=== PATIENT | male | born 1980 | race Caucasian/White ===

== ENCOUNTER 2021-09-30 14:49 | Inpatient (IN) | payer MEDICAID, OTHER ==
[~2021-09-30] VITALS: Ht 185.4 cm; Wt 83.9 kg
[2021-09-30] MEDS: ALBUTEROL SULF 2.5 MG/0.5ML(0.5%) NEB SOLN NEB SCH ×5 (10:20→22:28)
[~2021-09-30 14:49] MED LIST: DIAZ10TA; METH-532; NOR7.5T; NORTRIPTYLINE
[2021-09-30] MEDS ORDERED: ALBUTEROL SULF 2.5 MG/0.5ML(0.5%) NEB SOLN ONE (15:08)
[2021-09-30] MEDS ORDERED: IPRATROPIUM BROM 0.5 MG/2.5ML INH SOL ONE (15:08)
[2021-09-30] MEDS ORDERED: ALBUTEROL SULF 2.5 MG/0.5ML(0.5%) NEB SOLN NEB ONE (15:15)
[2021-09-30] MEDS ORDERED: IPRATROPIUM BROM 0.5 MG/2.5ML INH SOL NEB ONE (15:15)
[2021-09-30] MEDS ORDERED: methylPREDNISolone SOD SUCC 125 MG/2 ML VL IV ONE (15:15)
[2021-09-30 15:48] LABS: Basophils # (auto) 0 10 ^3/uL (0-0.2); Basophils % (auto) 0.1 % (0.0-2.0); Eosinophils # (auto) 0 10 ^3/uL (0-0.8); Eosinophils % (auto) 0.1 % (0.0-7.0); Hematocrit 43.6 % (41.0-53.0); Hemoglobin 14.5 g/dL (13.5-17.5); Lymphocytes # (auto) 0.2 10 ^3/uL (0.4-5.4); Lymphocytes % (auto) 1.9 % (10.0-50.0); Mean Corpuscular Hemoglobin 29.2 pg (28.0-32.0); Mean Corpuscular Hgb Conc. 33.2 g/dL (32.0-36.0); Monocytes # (auto) 0.1 10 ^3/uL (0-1.3); Neutrophils # (auto) 12.6 10 ^3/uL (1.6-8.6); Neutrophils % (auto) 96.9 % (37.0-80.0); Red Blood Cells 4.96 10^6/uL (4.5-5.90); Red Cell Distribution Width 13.7 % (11.8-14.3)
[2021-09-30 16:03] LABS: Albumin 3.8 g/dL (3.4-5.0); Calcium 7.5 mg/dL (8.5-10.1); Potassium 3.9 mmol/L (3.5-5.1)
[2021-09-30 16:09] LABS: BUN/Creatinine Ratio 11.5; Bilirubin, Total 0.3 mg/dL (0.2-1.0); Total Protein 7.4 g/dL (6.4-8.2)
[2021-09-30] MEDS ORDERED: MORPHINE SULFATE INJECTION 2 MG/ML SYRG IV PRN ×3 (16:30→17:00)
[2021-09-30] MEDS ORDERED: NITROGLYCERIN 0.4 MG SL TAB SL PRN ×2 (16:30→17:00)
[2021-09-30] MEDS ORDERED: MAGNESIUM SULFATE 1GM/100ML 100 ML IV ONE ×2 (16:30→20:29)
[2021-09-30] MEDS ORDERED: AZITHROMYCIN 500MG/ 250ML 250 ML IV ONE (16:45)
[2021-09-30] MEDS ORDERED: BUDESONIDE (INHALATION) 0.5 MG/2 ML NEB NEB ONE (17:00)
[2021-09-30] MEDS ORDERED: ALUM & MAG HYDROX-SIMETH LIQ(MAALOX) 30 ML PO PRN (17:00)
[2021-09-30] MEDS ORDERED: ALPRAZolam 0.5 MG TAB PO PRN (17:00)
[2021-09-30] MEDS ORDERED: ACETAMINOPHEN 325 MG TAB PO PRN (17:00)
[2021-09-30] MEDS ORDERED: HYDROcodone-ACET 5/325MG TAB PO PRN (17:00)
[2021-09-30] MEDS ORDERED: ONDANSETRON HCL 4 MG/2 ML VIAL IV PRN (17:00)
[2021-09-30] MEDS ORDERED: DOCUSATE SOD 100 MG CAP PO PRN (17:00)
[2021-09-30] MEDS ORDERED: MORPHINE SULFATE INJECTION 2 MG/ML SYRG IV ONE (17:00)
[2021-09-30] MEDS ORDERED: MONTELUKAST SODIUM 10 MG TAB PO ONE (17:00)
[2021-09-30] MEDS ORDERED: FAMOTIDINE (10MG/ML) 2ML VL IV ONE (17:00)
[2021-09-30] MEDS ORDERED: ENOXAPARIN SOD 40 MG/0.4 ML SYRINGE SC ONE (17:23)
[2021-09-30 18:00] VITALS: BP 115/72
[2021-09-30] MEDS: methylPREDNISolone SOD SUCC 40 MG/ML VL IV SCH (18:00)
[2021-09-30 18:20] LABS: INR 1.04 (0.9-1.15); Partial Thromboplastin Time 28.8 sec (23.6-33.0)
[2021-09-30 18:46] LABS: Magnesium 2.4 mg/dL (1.6-2.6)
[2021-09-30 18:49] LABS: Phosphorus 2.7 mg/dL (2.5-4.90)
[2021-09-30] MEDS: MAGNESIUM SULFATE 1GM/100ML 100 ML IV SCH ×2 (19:12→20:25)
[2021-09-30] MEDS: IPRATROPIUM BROM 0.5 MG/2.5ML INH SOL NEB SCH ×2 (19:50→22:28)
[2021-09-30] MEDS ORDERED: NORTRIPTYLINE HCL 10 MG CAP PO SCH (22:00)
[2021-09-30] MEDS: BUDESONIDE (INHALATION) 0.5 MG/2 ML NEB NEB SCH (22:29)
[2021-09-30 22:30] VITALS: BP 116/76
[2021-10-01] MEDS: methylPREDNISolone SOD SUCC 40 MG/ML VL IV SCH ×2 (00:10→06:42)
[2021-10-01 01:21] VITALS: BP 131/77
[2021-10-01] MEDS: ALBUTEROL SULF 2.5 MG/0.5ML(0.5%) NEB SOLN NEB SCH ×4 (01:48→14:41)
[2021-10-01] MEDS: IPRATROPIUM BROM 0.5 MG/2.5ML INH SOL NEB SCH ×4 (01:49→14:40)
[2021-10-01 07:37] LABS: Basophils # (auto) 0 10 ^3/uL (0-0.2); Basophils % (auto) 0.1 % (0.0-2.0); Eosinophils # (auto) 0 10 ^3/uL (0-0.8); Hematocrit 41.5 % (41.0-53.0); Lymphocytes # (auto) 0.3 10 ^3/uL (0.4-5.4); Lymphocytes % (auto) 1.9 % (10.0-50.0); Mean Corpuscular Hemoglobin 29.3 pg (28.0-32.0); Mean Corpuscular Hgb Conc. 33.7 g/dL (32.0-36.0); Mean Corpuscular Volume 87.1 fL (80.0-100.0); Monocytes # (auto) 0.5 10 ^3/uL (0-1.3); Monocytes % (auto) 2.8 % (0.0-12.0); Neutrophils # (auto) 15.5 10 ^3/uL (1.6-8.6); Neutrophils % (auto) 95.2 % (37.0-80.0); Red Blood Cells 4.77 10^6/uL (4.5-5.90); Red Cell Distribution Width 13.8 % (11.8-14.3); White Blood Cell 16.3 10^3/uL (4.4-10.8)
[2021-10-01 07:44] LABS: Potassium 5.1 mmol/L (3.5-5.1)
[2021-10-01 07:56] LABS: Albumin 3.5 g/dL (3.4-5.0); BUN/Creatinine Ratio 20.8; Bilirubin, Total 0.3 mg/dL (0.2-1.0); Calcium 8.1 mg/dL (8.5-10.1); INR 1.05 (0.9-1.15); Magnesium 3.4 mg/dL (1.6-2.6); Partial Thromboplastin Time 30.4 sec (23.6-33.0); Phosphorus 2.6 mg/dL (2.5-4.90); Uric Acid 4.1 mg/dL (3.5-7.2)
[2021-10-01] MEDS: BUDESONIDE (INHALATION) 0.5 MG/2 ML NEB NEB SCH (09:54)
[2021-10-01] MEDS ORDERED: AZITHROMYCIN 500MG/ 250ML 250 ML IV SCH (10:00)
[2021-10-01] MEDS ORDERED: ENOXAPARIN SOD 40 MG/0.4 ML SYRINGE SC SCH (10:00)
[2021-10-01] MEDS ORDERED: FAMOTIDINE (10MG/ML) 2ML VL IV SCH (10:00)
[2021-10-01 11:54] VITALS: BP 122/77
[2021-10-01] MEDS ORDERED: MORPHINE SULFATE INJECTION 2 MG/ML SYRG IV PRN (14:30)
[2021-10-01] MEDS ORDERED: methylPREDNISolone SOD SUCC 40 MG/ML VL IV SCH (22:00)
[2021-10-01] MEDS ORDERED: MONTELUKAST SODIUM 10 MG TAB PO SCH (22:00)
[2021-10-02] MEDS ORDERED: AZITHROMYCIN 250 MG TAB PO SCH (10:00)
== END 2021-10-01 14:55 | disposition left against medical advice (07) | DRG 140 ==
LOC: EDBD 14:49 → EDUNIT# 14:49 → ER 14:49 → TELE 16:25
PROVIDERS: ADMIT Hospitalist; ATTEND Internal Medicine
PROC: 5A09357 Assistance with Respiratory Ventilation, Less than 24 Consecutive Hours, Continuous Positive Airway Pressure (ICD-10-PCS; principal; 2021-09-30)
DX: J44.1 Chronic obstructive pulmonary disease with (acute) exacerbation (principal); J96.01 Acute respiratory failure with hypoxia; J45.902 Unspecified asthma with status asthmaticus; D72.829 Elevated white blood cell count, unspecified; F32.9 Major depressive disorder, single episode, unspecified; F41.9 Anxiety disorder, unspecified; M54.50 Low back pain, unspecified; F17.210 Nicotine dependence, cigarettes, uncomplicated; T38.0X5A Adverse effect of glucocorticoids and synthetic analogues, initial encounter; Z20.822 Contact with and (suspected) exposure to COVID-19
CPT/HCPCS: 36415; 36600; 71045; 80053; 80061; 82306; 82785; 82805; 83036; 83735; 83880; 84100; 84443; 84484; 84550; 85025; 85379; 85610; 85730; 87040; 87426; 93005; 94640; 94660; 96365; 96375; 99291; G0378; J2405; J3490

== ENCOUNTER 2021-12-07 12:11 | Inpatient (IN) | payer MEDICAID ==
[~2021-12-07] VITALS: Ht 185.4 cm; Wt 84.0 kg
[2021-12-07] MEDS ORDERED: cefTRIAXone 1GM/50ML D5W 50 ML IV ONE (12:15)
[2021-12-07] MEDS ORDERED: MAGNESIUM SULFATE 1GM/100ML 100 ML IV ONE (12:15)
[2021-12-07] MEDS ORDERED: methylPREDNISolone SOD SUCC 125 MG/2 ML VL IV ONE (12:15)
[2021-12-07] MEDS ORDERED: ALBUTEROL SULF 2.5 MG/0.5ML(0.5%) NEB SOLN NEB ONE ×2 (12:15→15:45)
[2021-12-07] MEDS ORDERED: IPRATROPIUM BROM 0.5 MG/2.5ML INH SOL NEB ONE ×2 (12:15→15:45)
[2021-12-07 13:44] LABS: Hematocrit 44.6 % (41.0-53.0); Hemoglobin 15.3 g/dL (13.5-17.5); Mean Corpuscular Hemoglobin 29.7 pg (28.0-32.0); Mean Corpuscular Hgb Conc. 34.2 g/dL (32.0-36.0); Mean Corpuscular Volume 86.8 fL (80.0-100.0); Red Blood Cells 5.14 10^6/uL (4.5-5.90); Red Cell Distribution Width 13.9 % (11.8-14.3); White Blood Cell 13.5 10^3/uL (4.4-10.8)
[2021-12-07 13:48] LABS: Basophils % (manual) 0 (0.0-2.0); Blast Cells 0; Eosinophils % (manual) 0 (0-7); Metamyelocytes % 0; Myelocytes % 0; Promyelocytes % 0; Reactive Lymphocytes 0
[2021-12-07 14:03] LABS: Band Neutrophils % (manual) 6; Lymphocytes % (manual) 4 (10.0-50.0); Monocytes % (manual) 4 (0-12)
[2021-12-07 14:10] LABS: Albumin 3.9 g/dL (3.4-5.0); BUN/Creatinine Ratio 11.9; Calcium 8.2 mg/dL (8.5-10.1); Potassium 3.5 mmol/L (3.5-5.1)
[2021-12-07 14:15] LABS: Bilirubin, Total 0.2 mg/dL (0.2-1.0); Total Protein 7.2 g/dL (6.4-8.2)
[2021-12-07] MEDS ORDERED: NITROGLYCERIN 0.4 MG SL TAB SL PRN (14:30)
[2021-12-07] MEDS ORDERED: MORPHINE SULFATE INJECTION 2 MG/ML SYRG IV PRN ×2 (14:30→15:45)
[2021-12-07] MEDS ORDERED: IOHEXOL 350 MG/ML 100ML IJ ONE (15:05)
[2021-12-07] MEDS ORDERED: hydrALAZINE HCL 20 MG/ML VL IV PRN (15:45)
[2021-12-07] MEDS ORDERED: METOCLOPRAMIDE HCL 5MG/ml INJ 2ml VIAL IV PRN (15:45)
[2021-12-07] MEDS ORDERED: MONTELUKAST SODIUM 10 MG TAB PO ONE (15:45)
[2021-12-07] MEDS ORDERED: LORazepam 0.5 MG TAB PO PRN (15:45)
[2021-12-07] MEDS ORDERED: FAMOTIDINE (10MG/ML) 2ML VL IV ONE (15:45)
[2021-12-07] MEDS ORDERED: ACETAMINOPHEN 325 MG TAB PO PRN (15:45)
[2021-12-07] MEDS ORDERED: LACTULOSE 20Gm/30ML SOLN PO PRN (15:45)
[2021-12-07] MEDS ORDERED: levoFLOXacin 750MG 150 ML IV ONE (15:45)
[2021-12-07] MEDS ORDERED: DOCUSATE SOD 100 MG CAP PO PRN (15:45)
[2021-12-07] MEDS ORDERED: HYDROcodone-ACET 5/325MG TAB PO ONE (15:45)
[2021-12-07] MEDS ORDERED: PROMETHAZINE-DM 5 ML ORAL SYRUP PO PRN (15:45)
[2021-12-07] MEDS ORDERED: BUDESONIDE (INHALATION) 0.5 MG/2 ML NEB NEB ONE (15:45)
[2021-12-07 16:05] VITALS: BP 122/81
[2021-12-07 16:16] LABS: Magnesium 2.3 mg/dL (1.6-2.6); Phosphorus 3.4 mg/dL (2.5-4.90)
[2021-12-07 16:23] LABS: Partial Thromboplastin Time 29.6 sec (23.6-33.0)
[2021-12-07] MEDS: SODIUM CHLORIDE 0.9% 1,000 ML IV SCH (16:40)
[2021-12-07] MEDS: ACETYLCYSTEINE 10 %(100MG/ML) SOL 4ML NEB SCH (18:39)
[2021-12-07] MEDS: BUDESONIDE (INHALATION) 0.5 MG/2 ML NEB NEB SCH (18:39)
[2021-12-07] MEDS: IPRATROPIUM BROM 0.5 MG/2.5ML INH SOL NEB SCH ×2 (18:39→22:57)
[2021-12-07] MEDS: ALBUTEROL SULF 2.5 MG/0.5ML(0.5%) NEB SOLN NEB SCH ×2 (18:39→22:57)
[2021-12-07 19:26] LABS: Urine Bacteria NONE SEEN /hpf (None Seen); Urine Blood Negative /uL (Negative); Urine Mucus FEW (None Seen); Urine Specific Gravity 1.009 (1.001-1.035); Urine WBC 1 /hpf (0 - 3)
[2021-12-07] MEDS ORDERED: HYDROcodone-ACET 5/325MG TAB PO PRN (21:45)
[2021-12-07 21:52] VITALS: BP 115/67
[2021-12-07 22:00] VITALS: BP 137/88
[2021-12-07] MEDS ORDERED: MONTELUKAST SODIUM 10 MG TAB PO SCH (22:00)
[2021-12-07] MEDS: methylPREDNISolone SOD SUCC 40 MG/ML VL IV SCH (22:14)
[2021-12-08] MEDS: IPRATROPIUM BROM 0.5 MG/2.5ML INH SOL NEB SCH ×3 (02:45→09:53)
[2021-12-08] MEDS: ALBUTEROL SULF 2.5 MG/0.5ML(0.5%) NEB SOLN NEB SCH ×3 (02:45→09:53)
[2021-12-08 05:00] VITALS: BP 132/74
[2021-12-08] MEDS: methylPREDNISolone SOD SUCC 40 MG/ML VL IV SCH (05:36)
[2021-12-08 05:45] LABS: Basophils # (auto) 0 10 ^3/uL (0-0.2); Basophils % (auto) 0.2 % (0.0-2.0); Eosinophils # (auto) 0 10 ^3/uL (0-0.8); Hemoglobin 15.2 g/dL (13.5-17.5); Lymphocytes # (auto) 0.4 10 ^3/uL (0.4-5.4); Lymphocytes % (auto) 2.8 % (10.0-50.0); Mean Corpuscular Hemoglobin 30.2 pg (28.0-32.0); Mean Corpuscular Hgb Conc. 35.3 g/dL (32.0-36.0); Mean Corpuscular Volume 85.7 fL (80.0-100.0); Monocytes # (auto) 0.4 10 ^3/uL (0-1.3); Monocytes % (auto) 3.1 % (0.0-12.0); Neutrophils # (auto) 13.2 10 ^3/uL (1.6-8.6); Neutrophils % (auto) 93.9 % (37.0-80.0); Nucleated Red Blood Cells % 0.1 %; Red Blood Cells 5.01 10^6/uL (4.5-5.90); Red Cell Distribution Width 14.1 % (11.8-14.3); White Blood Cell 14.1 10^3/uL (4.4-10.8)
[2021-12-08 05:56] LABS: INR 1.08 (0.9-1.15); Partial Thromboplastin Time 27.9 sec (23.6-33.0)
[2021-12-08 06:10] LABS: Alanine Aminotransferase 33 U/L (16-61); Albumin 3.6 g/dL (3.4-5.0); Alkaline Phosphatase 100 U/L (45-117); Aspartate Aminotransferase 24 U/L (15-37); BUN/Creatinine Ratio 14.1; Bilirubin, Total 0.3 mg/dL (0.2-1.0); Blood Urea Nitrogen 13 mg/dL (7-18); CRP High Sensitivity 1.86 mg/dL (< 0.3); Calcium 8.7 mg/dL (8.5-10.1); Carbon Dioxide 26 mmol/L (21-32); Cholesterol 105 mg/dL (< 200); GFR African American 116 mL/min; GFR Non-African American 96 mL/min; Glucose 152 mg/dL (74-106); HDL Cholesterol 73 mg/dL (40-59); LDL Cholesterol 22 mg/dL (< 100); Lipase 44 U/L (73-393); Phosphorus 3.3 mg/dL (2.5-4.90); Total Protein 7.2 g/dL (6.4-8.2); Triglycerides 28 mg/dL (< 150)
[2021-12-08] MEDS: ACETYLCYSTEINE 10 %(100MG/ML) SOL 4ML NEB SCH (06:17)
[2021-12-08] MEDS: BUDESONIDE (INHALATION) 0.5 MG/2 ML NEB NEB SCH (06:17)
[2021-12-08 06:32] LABS: Anion Gap 5 (5-15); Chloride 107 mmol/L (98-107); Magnesium 2.5 mg/dL (1.6-2.6); Potassium 4.3 mmol/L (3.5-5.1); Sodium 138 mmol/L (136-145); Uric Acid 3.8 mg/dL (3.5-7.2)
[2021-12-08] MEDS ORDERED: ENOXAPARIN SOD 40 MG/0.4 ML SYRINGE SC SCH (10:00)
[2021-12-08] MEDS ORDERED: levoFLOXacin 750MG 150 ML IV SCH (10:00)
[2021-12-08] MEDS ORDERED: FAMOTIDINE (10MG/ML) 2ML VL IV SCH (10:00)
[2021-12-08] MEDS: SODIUM CHLORIDE 0.9% 1,000 ML IV SCH (10:42)
[2021-12-08] MEDS ORDERED: ALBUTEROL SULF 2.5 MG/0.5ML(0.5%) NEB SOLN NEB SCH (14:00)
[2021-12-08] MEDS ORDERED: IPRATROPIUM BROM 0.5 MG/2.5ML INH SOL NEB SCH (14:00)
== END 2021-12-08 12:50 | disposition left against medical advice (07) | DRG 139 ==
LOC: ER 12:11 → EDBD 12:11 → OVERFLOW 14:26 → EAST 20:00
PROVIDERS: ADMIT Hospitalist; ATTEND Internal Medicine Pulmonary Disease
DX: J18.0 Bronchopneumonia, unspecified organism (principal); J96.21 Acute and chronic respiratory failure with hypoxia; J47.0 Bronchiectasis with acute lower respiratory infection; J45.51 Severe persistent asthma with (acute) exacerbation; F12.90 Cannabis use, unspecified, uncomplicated; F17.210 Nicotine dependence, cigarettes, uncomplicated; Z53.29 Procedure and treatment not carried out because of patient's decision for other reasons; Z71.6 Tobacco abuse counseling
CPT/HCPCS: 36415; 36600; 71045; 71275; 80053; 80061; 81001; 82728; 82785; 82805; 83036; 83615; 83690; 83735; 83880; 84100; 84443; 84484; 84550; 85007; 85025; 85027; 85379; 85610; 85652; 85730; 86141; 87040; 87086; 93005; 94640; 96365; 96367; 99291; G0378; J0696; J1956; J3490

== ENCOUNTER 2022-04-12 08:26 | Emergency (ER) | payer MEDICAID ==
[~2022-04-12] VITALS: Ht 175.3 cm; Wt 65.9 kg
[2022-04-12 09:57] LABS: Basophils # (auto) 0.1 10 ^3/uL (0-0.2); Basophils % (auto) 0.7 % (0.0-2.0); Eosinophils # (auto) 0.6 10 ^3/uL (0-0.8); Eosinophils % (auto) 5.8 % (0.0-7.0); Hematocrit 44.8 % (41.0-53.0); Hemoglobin 14.7 g/dL (13.5-17.5); Lymphocytes # (auto) 0.9 10 ^3/uL (0.4-5.4); Lymphocytes % (auto) 9.2 % (10.0-50.0); Mean Corpuscular Hemoglobin 28.6 pg (28.0-32.0); Mean Corpuscular Hgb Conc. 32.7 g/dL (32.0-36.0); Mean Corpuscular Volume 87.4 fL (80.0-100.0); Monocytes # (auto) 0.5 10 ^3/uL (0-1.3); Monocytes % (auto) 5.4 % (0.0-12.0); Neutrophils # (auto) 7.8 10 ^3/uL (1.6-8.6); Neutrophils % (auto) 78.9 % (37.0-80.0); Red Blood Cells 5.13 10^6/uL (4.5-5.90); White Blood Cell 9.9 10^3/uL (4.4-10.8)
[2022-04-12 10:12] LABS: Albumin 3.6 g/dL (3.4-5.0); Calcium 7.9 mg/dL (8.5-10.1); Potassium 4.3 mmol/L (3.5-5.1)
[2022-04-12 10:16] LABS: BUN/Creatinine Ratio 20.8; Bilirubin, Total 0.3 mg/dL (0.2-1.0); Total Protein 6.6 g/dL (6.4-8.2)
[2022-04-12] MEDS ORDERED: methylPREDNISolone SOD SUCC 125 MG/2 ML VL IV ONE (11:15)
[2022-04-12] MEDS ORDERED: IPRATROPIUM BROM 0.5 MG/2.5ML INH SOL HHN ONE (11:15)
[2022-04-12] MEDS ORDERED: ALBUTEROL SULF 2.5 MG/0.5ML(0.5%) NEB SOLN HHN ONE (11:15)
[2022-04-12] MEDS ORDERED: ALBUAER3 IN (11:34)
[2022-04-12] MEDS ORDERED: METH4PAK PO (11:34)
[2022-04-12 13:00] VITALS: BP 114/64
== END 2022-04-12 13:36 | disposition left against medical advice (07) ==
LOC: EDBD 08:26 → ER 08:26
DX: J45.901 Unspecified asthma with (acute) exacerbation (principal); F17.210 Nicotine dependence, cigarettes, uncomplicated
CPT/HCPCS: 36415; 71045; 80053; 84484; 85025; 93005; 94644; 96374; 99285; J2930; J7644

== ENCOUNTER 2022-04-12 15:11 | Emergency (ER) | payer MEDICAID ==
[~2022-04-12] VITALS: Ht 175.3 cm; Wt 150.0 kg
[~2022-04-12 15:11] MED LIST changes: +ALBUAER3 IN; -DIAZ10TA; -METH-532; +METH4PAK PO; -NOR7.5T; -NORTRIPTYLINE
[2022-04-12 22:38] VITALS: BP 111/52
== END 2022-04-12 22:44 | disposition short-term general hospital (02) ==
LOC: EDBD 15:11 → ER 15:11
DX: J45.901 Unspecified asthma with (acute) exacerbation (principal); F17.210 Nicotine dependence, cigarettes, uncomplicated; Z20.822 Contact with and (suspected) exposure to COVID-19
CPT/HCPCS: 36415

== ENCOUNTER 2023-04-11 09:15 | Emergency (ER) | payer MEDICAID ==
[~2023-04-11] VITALS: Ht 177.8 cm; Wt 72.7 kg
[2023-04-11 09:22] VITALS: BP 144/88; PULSE 91; RESP 28; O2SAT 99
[2023-04-11] MEDS ORDERED: DexAMETHasone SOD PHOS 10MG/1ML VIAL INJ IV ONE (10:30)
[2023-04-11 10:54] LABS: Basophils # (auto) 0.1 10 ^3/uL (0-0.2); Basophils % (auto) 0.8 % (0.0-2.0); Eosinophils # (auto) 0.6 10 ^3/uL (0-0.8); Eosinophils % (auto) 7.3 % (0.0-7.0); Hematocrit 46.9 % (41.0-53.0); Hemoglobin 15.8 g/dL (13.5-17.5); Lymphocytes # (auto) 1.1 10 ^3/uL (0.4-5.4); Lymphocytes % (auto) 14.3 % (10.0-50.0); Mean Corpuscular Hgb Conc. 33.7 g/dL (32.0-36.0); Mean Corpuscular Volume 83.1 fL (80.0-100.0); Monocytes # (auto) 0.6 10 ^3/uL (0-1.3); Monocytes % (auto) 7.6 % (0.0-12.0); Neutrophils # (auto) 5.5 10 ^3/uL (1.6-8.6); Nucleated Red Blood Cells % 0.1 %; Red Blood Cells 5.64 10^6/uL (4.5-5.90); Red Cell Distribution Width 14.6 % (11.8-14.3); White Blood Cell 7.9 10^3/uL (4.4-10.8)
[2023-04-11 11:29] LABS: Calcium 8.2 mg/dL (8.5-10.1); Potassium 3.6 mmol/L (3.5-5.1)
[2023-04-11 11:35] LABS: Albumin 3.5 g/dL (3.4-5.0); Bilirubin, Total 0.4 mg/dL (0.2-1.0); Total Protein 6.9 g/dL (6.4-8.2)
== END 2023-04-11 10:31 | disposition left against medical advice (07) ==
LOC: EDBD 09:15 → ER 09:15
DX: J45.901 Unspecified asthma with (acute) exacerbation (principal); F17.210 Nicotine dependence, cigarettes, uncomplicated; F12.10 Cannabis abuse, uncomplicated
CPT/HCPCS: 36415; 71045; 80053; 84484; 85025; 93005